=== PATIENT | male | born 1965 | race African-American/Black ===

== ENCOUNTER 2020-06-16 15:56 | Emergency (ER) | payer OTHER ==
[~2020-06-16] VITALS: Ht 182.9 cm; Wt 77.0 kg
[2020-06-16] MEDS ORDERED: PREDNISONE 20MG TABLET PO ONE (17:00)
[2020-06-16 17:34] VITALS: BP 142/82
== END 2020-06-16 17:35 | disposition home or self-care (01) ==
LOC: ER 15:56
DX: L25.9 Unspecified contact dermatitis, unspecified cause (principal); E11.9 Type 2 diabetes mellitus without complications; F17.210 Nicotine dependence, cigarettes, uncomplicated
CPT/HCPCS: 99283; J7512